=== PATIENT | male | born 2005 | race Caucasian/White ===

== ENCOUNTER 2024-10-02 01:06 | Inpatient (IN) | payer BC, SELFPAY ==
[2024-10-01 18:58] VITALS: BP 135/70
[2024-10-01 21:27] VITALS: BP 121/74
[2024-10-01 22:00] VITALS: BP 124/56
[2024-10-01 22:12] VITALS: BMI 23.7
--- NOTE | 2024-10-01 22:56 | ED.GENMED ---
History of Present Illness
General
Chief Complaint: DVT/Possible Blood Clot
Source: patient
Exam Limitations: none
Time Seen by Provider: 10/01/24 22:55
Nursing documentation reviewed up to this point in time: agreed with
History of Present Illness
History of Present Illness:
Note:
CHIEF COMPLAINT(S)
Swelling and discoloration of the right upper arm with discomfort.
HISTORY OF PRESENT ILLNESS
The patient is a 19-year-old male who presents with swelling and purplish discoloration of the right upper arm. The symptoms began yesterday morning. The patient noticed the swelling upon waking up, and it has fluctuated over the past two days. He
reports discomfort but not severe pain, describing it uncomfortable. There is full range of motion in the arm despite the swelling. The patient denies any acute worsening of symptoms in the past few hours. He does not recall any specific injury,
recent physical activity, or lifting that could explain the symptoms. The patient flew two weeks ago but lacks a history of prolonged immobility or recent vigorous activity denies any pain or swelling in his legs. He denies any neck pain, chest
pain, difficulty breathing, or numbness and tingling in the arm. He has no personal history of blood clots but reports a family history of autoimmune disorders.
The patient underwent an ultrasound, revealing a blood clot in the right subclavian vein extending into the axillary vein.
PHYSICAL EXAM
Nursing notes reviewed and vital signs reviewed.
General: Patient is well appearing and in no acute distress; non-toxic
Skin: Warm and dry, no rashes or lesions
Head: Normocephalic, atraumatic
Eyes: Sclera non-icteric. EOMs intact.
Cardiac: Regular rate and rhythm, no murmurs
Peripheral Vascular: Asymmetric swelling noted in the right arm. 2+ radial and ulnar pulses on the right.
Pulm: Normal respiratory effort, no wheezes, rales, rhonchi
Musculoskeletal: Full range of motion of bilateral upper extremities. No tenderness palpation of the right upper extremity.
Neuro: CN II-XII intact, no focal neurologic deficits.
Psychiatric: Appropriate mood and affect.
PLAN
The patient will be initiated on oral anticoagulation therapy to manage the blood clot in the right subclavian vein extending into the axillary vein.
Consultation with a tax director is planned to discuss the possibility of additional testing for clotting disorders and to evaluate any need for any parenteral anticoagulation
Provide the patient with a copy of the ultrasound report and schedule a follow-up with a tax director for further testing and monitoring.
Continue to monitor symptoms and ensure regular follow-up
DIFFERENTIAL DIAGNOSIS
The Differential Diagnosis includes, in no particular order and is not limited to:
1. Deep vein thrombosis of the upper extremity
2. Thoracic outlet syndrome
3. Brachial plexus injury
4. Lymphedema
5. Hematoma
6. Superficial thrombophlebitis
7. Cellulitis
8. Muscle strain
9. Vascular malformation
10. Autoimmune vasculitis
ECG
ECG reveals sinus bradycardia with sinus arrhythmia with a rate of 57, normal intervals, no prolongation of QT interval no signs of ischemia
CHART REVIEW
Reviewed [facility], no previous ER physician documentation to review
Patient is visiting from [place]
MDM/DISPOSITION
19-year-old male with no past medical history presents emergency department today with concerns of right arm pain and swelling. He is found to have occlusive thrombus within the right subclavian vein extending into the right axillary vein.
Reviewed case with tax director on-call. Plan to initiate IV heparin and refer for admission. Did talk to vascular as well. Patient may be a candidate for lysis. Will keep NPO. Patient referred to hospitalist for admission.
Review of Systems
Review of Systems
All Other Systems: ROS reviewed and negative except as documented in HPI and ROS
Phy Exam
Physical Exam
Physical Exam:
see hpi
Course
Orders/Labs/Results
Orders:
Orders
10/01/24 19:00
US Periph Venous UPPER Ext RT Urgent
Comment:
Reason For Exam: swollen R arm
07/13/25 19:09
EKG [Electrocardiogram (*1)] Urgent
Reason for Study: Other
Other Reason for Exam: palpitations
EKG- Treatment ONCE
10/02/24 00:[address] Non Medication Order As Directed
Physician Order: PTT 6 hours after initial start of Heparin infusion
Above order entered?: Yes
10/02/24 00:15
Heparin 06561 Units/250 ml 25,000 units in 250 ml IV PER PROTOCOL
Weight to be used for heparin protocol in kilograms (kg):: 77.111
Protocol:: DVT/PE
PTT Goal Range to be used:: PTT 73 to 111 seconds
Order type:: Initial
INITIAL Infusion Dose (UNITS/KG/hr) & then follow protocol:: 18 units/kg/hr
Infusion Dose in UNITS/hr & then follow protocol (UNITS/hr):: 1,400
INFUSION RATE in mL/hr & then follow protocol (mL/hr):: 14
For DVT/PE algorithm, re-bolus for low PTT?: Yes
PTT less than or equal to 64 seconds:: Re-bolus 80 units/kg (max 10,000units). Increase by 300 units/hr
(+ 3mL/hr)
PTT 64.1 to 72.9 seconds:: Re-bolus 40 units/kg (max 5,000 units). Increase by 200 units/hr
(+ 2mL/hr)
PTT 73 to 111 seconds:: Target Range. No change in rate.
PTT 111.1 to 130.9 seconds:: Decrease rate by 200 units/hr (- 2 mL/hr)
PTT 131 to 199.9 seconds:: HOLD for 1 hr. Then decrease by 200 units/hr (- 2mL/hr)
PTT greater than or equal to 200 seconds:: HOLD for 2 hrs & Notify Provider. Then decrease by 300 units/hr
(- 3mL/hr)
Lab follow-up:: Each change, PTT q6h until 2 consecutive are therapeutic. Then
PTT daily.
10/02/24 00:32
Complete Blood Count/With Diff Urgent
Comprehensive Metabolic Panel Urgent
PTT Urgent
Prothrombin Time Urgent
10/02/24 00:43
Heparin 6,200 units IV PRN PRN
10/02/24 00:44
Heparin 3,100 units IV PRN PRN
10/02/24 00:53
Heparin 6,200 units IV NOW STA
10/02/24 00:54
Admit/Transfer Patient As Directed
Co-Sign Provider:
Level of Care: Inpatient admission
Assign to:: Telemetry
Physician / Group: Aurelio
Diagnosis: RUE DVT
Reason for Telemetry: Arrhythmia
Date to Stop Telemetry: 10/05/24
Time to Stop Telemetry: 11:00
Reason for Hospitalization: RUE DVT
Expected length of stay greater than two midnights?: Yes
ELOS- Estimated Length of Stay in days: 3
I certify the patient meets the requirements for IP care: Yes
PRN Pain Medication Management As Directed
May give lesser potent ordered pain med per pt: Yes
preference::
Protocol:: Medication orders for pain may be administered in a
manner that supports deferring to patient preference
when the pt is:
- Requesting an ordered lesser potent pain medication.
Least to most potent pain medications are defined
as: acetaminophen < NSAID < tramadol < opioids
(morphine, oxycodone, hydromorphone).
- Requesting a lesser dose of the same medication IF
ORDERED.
- Requesting a less intrusive route of administration
if both routes are prescribed by the provider (PO <
IV).
10/02/24 00:55
Code Status As Directed
Resuscitation Status: Full Code
10/02/24 01:00
Flush (0.9% Sodium Chloride) [Flush (Nss)] See Dose Instructions IV PER PROTOCOL
10/02/24 01:50
Acetaminophen [Tylenol] 650 mg PO Q4HPRN PRN
10/02/24 01:50
Consult Notification Routine
Specialty to Notify: Vascular Surgery
Vascular Surgery Consult Routine
Consulting Provider: Chris Forman
Was physician already notified: No
Reason for consult: RUE DVT / Paget-Schroetter?
Glycohemoglobin (HgbA1c) Routine
TSH Reflex To Free T4 Routine
Heparin Protocol- PTT Orders As Directed
PTT per Heparin protocol: -Obtain CBC and baseline PTT - if not already collected.
-Obtain PTT 6 hours from start of infusion. Then, every 6 hours until 2 consecutive
PTT's are therapeutic. Then, PTT Daily.
-With each rate change, obtain PTT every 6 hours until 2 consecutive PTT's are
therapeutic. Then, PTT Daily.
Activity As Directed
Activity Level: Ambulate
EKG with chest pain [ECG as needed] As Directed
ECG as needed for:: Chest Pain
I/O [Intake/ Output] As Directed
Frequency: Per unit guidelines
Notify MD As Directed
Notify physician if: PTT is greater than or equal to 200.
Vital Signs As Directed
Frequency: Per unit guidelines
10/02/24 Breakfast
NPO
Allow oral meds: Yes
Allow clear liquids: Sips of Clears
10/04/24 06:00
Complete Blood Count/No Diff Q2D
Comment: notify provider: Platelet count < 130,000 or decrease by 50% from baseline
10/05/24 11:00
DC Protocol for Telemetry ONCE
10/06/24 06:00
Complete Blood Count/No Diff Q2D
Comment: notify provider: Platelet count < 130,000 or decrease by 50% from baseline
10/08/24 06:00
Complete Blood Count/No Diff Q2D
Comment: notify provider: Platelet count < 130,000 or decrease by 50% from baseline
10/10/24 06:00
Complete Blood Count/No Diff Q2D
Comment: notify provider: Platelet count < 130,000 or decrease by 50% from baseline
10/12/24 06:00
Complete Blood Count/No Diff Q2D
Comment: notify provider: Platelet count < 130,000 or decrease by 50% from baseline
10/14/24 06:00
Complete Blood Count/No Diff Q2D
Comment: notify provider: Platelet count < 130,000 or decrease by 50% from baseline
10/16/24 06:00
Complete Blood Count/No Diff Q2D
Comment: notify provider: Platelet count < 130,000 or decrease by 50% from baseline
10/18/24 06:00
Complete Blood Count/No Diff Q2D
Comment: notify provider: Platelet count < 130,000 or decrease by 50% from baseline
Abnormal Lab Results
10/02/24
00:32
RBC 4.59 L 10^6/uL
(4.70-6.10)
MCH 31.2 H pg
(27.0-31.0)
Absolute Monos (auto) 1.0 H 10^3/uL
(0.1-0.6)
Monocytes % 11.0 H %
(1.7-9.3)
PT 14.8 H Sec
(11.4-14.6)
Glucose 168 H mg/dl
(70-99)
10/02/24 00:32
10/02/24 00:32
Vital Signs
Initial and Last Documented VS:
Initial Vital Signs
Temp Pulse Resp BP Pulse Ox
98.2 F 68 16 135/70 100
10/01/24 18:58 10/01/24 18:58 10/01/24 18:58 10/01/24 18:58 10/01/24 18:58
Last Documented Vital Signs
Temp Pulse Resp BP Pulse Ox
98.2 F 55 18 119/82 100
10/02/24 02:15 10/02/24 02:15 10/02/24 02:15 10/02/24 02:15 10/02/24 02:15
*Pulse Oximetry
SaO2: 98
Oxygen Mode of Delivery: Room air
Patient hypoxic: no
*Critical Care Note
Total Time (30-74mins, 75-104mins- exclusive of procedures): Not Applicable
ED Attending Note
-
Portions of this chart may have been created with voice recognition software.� Occasional wrong word or��sound alike� substitutions may have occurred due to the inherent limitations of voice recognition software.
Discharge Plan
Departure
Patient Disposition: Admit
Date of Disposition: 10/02/24
Time of Disposition: 00:13
Admit to: Med/Surg
Presentation/result/management discussed w/ accepting MD/DO: Hospitalist
Patient with high blood pressure during this ER visit?: Yes
Condition: Fair
Discharge Problem:
Acute deep vein thrombosis (DVT) of right upper extremity
Interventions
Interventions:
*Risk Screen - Suicide Last Done: 10/02/24 02:06
*General Assessment Last Done: 10/01/24 22:13
*Neglect/Abuse Screening Last Done: 10/01/24 20:33
*ED- Fall Risk Assessment Last Done: 10/01/24 20:34
*ED COVID-19 Vaccine History Last Done: 10/01/24 20:34
*Nursing Disposition Last Done: 10/02/24 01:43
ED- Cardiac Assessment Last Done: 10/01/24 22:13
ED- Pulmonary Assessment Last Done: 10/01/24 22:13
ED-Peripheral Vascular Assessment Last Done: 10/01/24 22:13
ED-Skin Assessment Last Done: 10/01/24 22:13
Discharge Date and Time
Discharge Date/Time: 10/02/24 01:45
[2024-10-02] VITALS (26 sets, daily range): BP systolic 97–124; BP diastolic 48–82; BMI 23.1
[2024-10-02 00:41] LABS: Hematocrit 39.7 % (39.0-52.0); Hemoglobin 14.3 g/dL (13.0-18.0); Mean Corp Hgb Conc. 36.0 g/dL (33.0-37.0); Mean Corpuscular Volume 86.5 fL (80.0-94.0); Nucleated Red Blood Cells % 0 % (-); Platelet Count 166 10^3/uL (130-400); Red Cell Dist. Width 11.9 % (11.5-14.5)
[2024-10-02 00:51] LABS: ALT (SGPT) 25 U/L (0-50); AST (SGOT) 47 U/L (17-59); Albumin 4.3 g/dl (3.5-5.0); Alkaline Phosphatase 78 U/L (38-126); Blood Urea Nitrogen 15 mg/dl (9-20); Calcium 9.2 mg/dl (8.4-10.2); Carbon Dioxide 26 mmol/L (22-30); Chloride 107 mmol/L (98-107); Estimated Creatinine Clearance > 125 ml/min; Glucose 168 mg/dl (70-99); Potassium 3.6 mmol/L (3.5-5.1); Sodium 139 mmol/L (135-145); Total Protein 6.7 g/dl (6.3-8.2); eGFR > 60.00
[2024-10-02 00:53] LABS: INR 1.13; PT 14.8 Sec (11.4-14.6)
[2024-10-02 00:54] LABS: APTT 30.8 Sec (23.4-35.0)
--- NOTE | 2024-10-02 01:00 | HPS.HSE ---
Family Physician
-
Family Physician: NOT KNOW UNKNOWN - PT DOES
Chief Complaint
-
RUE swelling
History of Present Illness
Patient is a 19y M with PMH significant for psoriasis who presents to ED complaining of RUE swelling, tingling and discoloration. Patient states that he noted his arm felt like it had 'poor circulation' since yesterday AM. His symptoms seemed
to come and go throughout the day - but generally became more frequent / severe. He noted mild redness and occasional purple appearance to the RUE. He reports increased discomfort if he raises his arm over his head. He denies any prior history of
similar symptoms.
Patient states that he recently started a running / jogging regimen. He denies any other repetitive movements, weight lifting, etc.
Medical History
Past Medical History
Past Medical History: Reports Other
Additional Past Medical History:
Psoriasis
Past Surgical History: Reports Other
Additional Past Surgical History:
Cyst removal
T&A
Social History
Tobacco: Non-smoker
Alcohol: Occasional
Drug: None
Family History
Family History: Other (Mother: DM-I MGF: Grave's disease MGM: Myasthenia MUncle: Crohn's PGM: Multiple miscarriages)
Allergies / Home Medications
Allergies reflects when Allergies were last updated in [employer].
Home Medications with original date entered in [employer]
Allergy/Medication List:
Allergies
Allergy/AdvReac Type Severity Reaction Status Date / Time
No Known Allergies Allergy Unverified 10/01/24 19:03
Home Medications
No Meds [No Current Medications] 10/02/24
Review of Systems
-
History Source: Patient
A 12 point ROS was completed and negative except as noted: Yes
Constitutional: Denies Fever or Chills
Respiratory: Denies Cough or Trouble Breathing
Cardiac: Denies Chest Pain or Palpitations
Abdomen/GI: Denies Abdominal Pain, Nausea, Vomiting or Diarrhea
: Denies Dysuria or Frequency
Musculoskeletal: Reports Edema (RUE)
Skin: Reports Other (Discoloration of RUE)
Neurological: Denies Dizzy or Headache
Physical Exam
Vital Signs
Vital Signs
Temp Pulse Resp BP Pulse Ox
98.2 F 78 16 124/56 98
10/01/24 18:58 10/01/24 21:27 10/01/24 18:58 10/01/24 22:00 10/01/24 23:00
Physical Exam
General: Other (19y M in no acute distress.)
HEENT: Moist mucous membranes and PERRLA
Respiratory: Clear; No Wheezes, Rales or Rhonchi
Cardiac: S1/S2 and Regular Rhythm; No Murmur
GI: Soft, Non Tender, Non Distended and Normal Bowel Sounds
Musculoskeletal: Other (RUE with asymmetric edema compared to the L. Mild erythema / discoloration. )
Neuro: AO x 3
Hematologic/Lymphatic: Other (Palpable pulses at the R wrist. Good cap refill.)
Laboratory Results
-
10/02/24 00:32
10/02/24 00:32
Laboratory Results
PT 14.8 Sec (11.4-14.6) H 10/02/24 00:32
INR 1.13 10/02/24 00:32
APTT 30.8 Sec (23.4-35.0) 10/02/24 00:32
Total Bilirubin 0.6 mg/dl (0.2-1.3) 10/02/24 00:32
AST 47 U/L (17-59) 10/02/24 00:32
ALT 25 U/L (0-50) 10/02/24 00:32
Alkaline Phosphatase 78 U/L (38-126) 10/02/24 00:32
Impression/Plan
-
A/P: Patient is a 19y M with PMH significant for psoriasis who presents to ED c/o 2 days of RUE swelling.
RUE DVT
- Admit for further evaluation and treatment.
- Suspect venous thoracic outlet obstruction / Paget-Schroetter's syndrome given age and absence of other apparent risk factors.
- IV heparin overnight.
- Vascular Surgery evaluation in the AM.
- May benefit from thoracic outlet decompression / first rib resection.
- Defer discussions re: timing / intervention to Vascular Surgery.
- Change to OAC prior to discharge.
- Patient / family are from [place] and just here visiting. May wish to seek definitive care / surgery / etc back home if possible.
Code Status: Full
[2024-10-02] MEDS: HEPARIN 6200 UNITS IV (01:21)
[2024-10-02] MEDS: HEPARIN 25000 UNITS/250 ML IV (01:24)
--- NOTE | 2024-10-02 02:52 | PTCARENOTE ---
Patient arrived from the ED via stretcher at approximately 0150. Patient ambulated self from stretcher to bed - gait steady. AAOx3, pleasant. Patient w/ heparin gtt running through LAC @ 14mls/hr - next PTT due at 0730. VSS as documented. Assessment
as documented. Patient oriented to room. Bed in lowest position. Call fierro within reach.
--- NOTE | 2024-10-02 07:18 | CON.VAS ---
Addendum entered and electronically signed by Abdiel Wheeler III, MD 10/02/24 15:30:
This patient was seen and examined in collaboration with VERNON Barron. I agree with the history and physical exam as well as the assessment and plan. I have the following additions:
Healthy 19-year-old male with no past medical or past surgical history
Presents with right arm discoloration and swelling starting Wednesday morning acutely
He reports no preceding symptoms
Patient reports no precipitating activity
Has been exercising recently but denies strenuous weightlifting or exercises above his head
No repetitive motion exercises
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
He is a student at [employer]
He lives in [place]
Venous duplex personally reviewed and demonstrates occlusive thrombus in the right subclavian vein
On physical exam he is well-appearing and in no distress
Mom at bedside
He is alert and oriented
No chest wall collaterals identified
Right arm is firm compared to the left but not tight
Mild to moderate purple discoloration throughout
Nontender to palpation
Palpable radial pulse
Assessment/Plan: Venous TOS with occlusive R SCV DVT
I had a long conversation with the patient and his mother this morning regarding the diagnosis and recommended treatment strategies. I had a separate detailed conversation this afternoon with the patient and his mother once again along with his
father via telephone. During both discussions I explained the diagnosis of venous thoracic outlet syndrome and the subclavian vein DVT. I explained that the initial treatment strategy would be to reestablish patency of the subclavian vein with
thrombolysis. The technical aspects of this procedure were discussed with them in detail. The benefits and rationale for this approach were discussed with them in detail. Operative risks were discussed with them in detail including but not
limited to vascular access site injury, bleeding/hematoma, low risk of catastrophic or life-threatening bleeding. I also explained that the definitive intervention for venous thoracic outlet syndrome would be first rib resection and scalenectomy.
The technical aspects of this procedure were discussed with them in detail. The benefits and rationale for first rib resection were discussed with them in detail. Anticipated recovery, both inpatient and outpatient were discussed with them.
The other option which we discussed would be to have him go home on anticoagulation without thrombolysis and followup urgently with a vascular surgeon close to home to initiate lysis/surgical management. The advantages and disadvantages of this
approach were discussed with them.
They are not sure how they would like to proceed at this point. I explained that I have personally communicated with Dr. Matt Jaquez from [facility] who is willing to facilitate followup with Kyrie once he gets back home.
They would like some additional time to figure out how they want to proceed.
We will alutiiq back with them later this PM to finalize a plan
All questions answered
Signed:
Abdiel Wheeler III, MD
Vascular Surgery
[facility]
Original Note:
Consultation
Consultation Request
Date/Time Consultation Performed: 10/02/24 8:00
Performing Provider: Summer
Reason for Consultation: RUE DVT
Medical History
-
Chief Complaint: RUE swelling/discomfort
History of Present Illness:
19-year-old male with past medical history significant for psoriasis presented to the emergency room overnight for right upper extremity swelling/discoloration/discomfort. Patient states he woke Wednesday morning with stiffness to his right upper
extremity. Stated 'I did not have full range of motion'. Patient states that throughout the day his arm would intermittently feel swollen and become purple in color. He states he had increased discomfort when he raise his arm over his head. He
decided to come to the emergency room last night and was admitted for management of right upper extremity DVT.
Vascular consult for right upper extremity DVT. Patient seen at bedside this a.m. with Dr. Wheeler. Patient's mother at bedside as well. Right upper extremity slightly larger than left, no discoloration, hand warm and pink, mild discomfort per the
patient. Patient denies repetitive movements. States he has very active. He does long distance running and body weight workouts. Patient was placed on heparin drip last night. Patient/family are from [place] and were here visiting for the
weekend.
Past Medical History
Past Medical History: Other (Psoriasis)
Past Surgical History: Other (Cyst removal, T&A)
Social History
Tobacco: Non-Smoker
Alcohol: Occasional
Drug: None
Living: With Family
Family History
Family History: Other (DM-I, Grave's disease, Myasthenia , Crohn's, Multiple miscarriages)
Allergies / Home Medications
Allergy/AdvReac Type Severity Reaction Status Date / Time
No Known Allergies Allergy Unverified 10/01/24 19:03
�Medication �Instructions �Recorded �Confirmed �Type
No Meds [No Current Medications] 10/02/24 10/02/24 History
Review of Systems
-
History Source: Patient
All other systems: Negative unless noted
Constitutional: Reports No Symptoms
EENT: Reports No Symptoms
Respiratory: Reports No Symptoms
Cardiac: Reports No Symptoms
Vascular: Reports Tingling (Right upper extremity intermittently); Denies Leg Pain / Claudication
Abdomen/GI: Reports No Symptoms
: Reports No Symptoms
Musculoskeletal: Reports Muscle Stiffness and Edema
Skin: Reports No Symptoms
Neurological: Reports No Symptoms
Physical Exam
Vital Signs
Temp Pulse Resp BP Pulse Ox
98.2 F 55 18 119/82 100
10/02/24 02:15 10/02/24 02:15 10/02/24 02:15 10/02/24 02:15 10/02/24 02:15
Lab Results
10/02/24 00:32
10/02/24 00:32
Physical Exam
General: No Apparent Distress
HEENT: Normocephalic and Atraumatic
Respiratory: Non Labored Respirations
Cardiac: Negative JVD
GI: Soft and Non Tender
Musculoskeletal: No Clubbing, No Cyanosis and Edema (Scant swelling to the right upper extremity)
Skin: Warm
Neuro: Awake, Alert and Oriented
Psych: Calm
Assessment / Plan
-
19-year-old male here with right upper extremity DVT, suspected thoracic outlet syndrome
Plan:
N.p.o. for possible right upper extremity lysis later today
Continue heparin drip
Dr. Wheeler is in communication with vascular surgeons in [place] near patient's hometown. Formulating plan for lysis/first rib resection/follow-up with vascular surgeon near patient's home. We will follow-up with the patient with surgical plan
shortly.
Data Reviewed
-
CT Scan: Discussed with Patient
Ultrasound: Discussed with Patient
Labs: Labs Reviewed by me
[2024-10-02 07:55] LABS: APTT 105.6 Sec (23.4-35.0)
--- NOTE | 2024-10-02 08:44 | W.PN.UPDATE ---
Update Note
Progress Note Update
Patient seen and examined, agree with admission H&P.
19-year-old male admitted for right upper extremity DVT and possible venous thoracic outlet syndrome.
Discussed with vascular surgery, continue IV heparin, plan for thrombolysis this afternoon.
Patient will need to be monitored in the ICU afterwards.
[2024-10-02 08:53] LABS: Glycohemoglobin (HgbA1c) 4.7 % (4.0-5.6)
--- NOTE | 2024-10-02 11:21 | CM ---
Reviewed the chart notes and spoke with the patient and his mother at the bedside. Patient typically during school year resides with roommates in a three story townhome with six steps to enter at school. The patient reports no DME/VN/SNF in the
past. The patient's family was visiting from [place] and staying with friends in [facility]. The patient anticipates being stabilized here and discharging back to [place] for further treatment. CM continues to be available to patient/family and is
monitoring medical plan for needs at discharge.
Plan: Discharge to parents home in [place] when medically stable.
[2024-10-02 14:12] LABS: APTT 64.8 Sec (23.4-35.0)
[2024-10-02] MEDS: HEPARIN 3100 UNITS IV (14:44)
[2024-10-02] MEDS: BACTROBAN 2% OINTMENT 1 APPLIC NASAL (16:18)
[2024-10-02] MEDS: PERIDEX 0.12% ORAL RINSE 15 ML PO (16:18)
--- NOTE | 2024-10-02 16:39 | W.SUR.PREOP ---
Pre-Operative Surgical Note
-
Patient and family have decided to move ahead with initiation of thrombolysis.
I have examined this patient prior to the performance of the scheduled procedure.
The patient's condition is unchanged from the time of the current History and
Physical and the patient is able to undergo the scheduled procedure.
--- NOTE | 2024-10-02 18:19 | W.SUR.POST ---
Surgical Immediate Post Op
Note
Pre Op Diagnosis: Thoracic Outlet Syndrome
Post Op Diagnosis: Thoracic Outlet Syndrome
Procedure Performed: RUE subclavian lysis catheter placement
Primary Surgeon: Abdiel Wheeler III, MD
Secondary Surgeons: Elgin Rehman MD
Anesthesia: see anesthesia note
Estimated Blood Loss: 1cc
Fluids: see anesthesia note
Drains/Shunts: lysis catheter
Specimens/Cultures: none
Doppler/Duplex/Angio (Y/N): Y
Complications: none
Operative Findings: Extensive R subclavian clot burden with stenosis at level of first rib medial border.
[2024-10-02] MEDS: CATHFLO/ACTIVASE 16 ML INF CATH (18:28)
[2024-10-02] MEDS: CATHFLO/ACTIVASE 16 MG INF CATH (18:28)
[2024-10-02] MEDS: HEPARIN 25000 UNITS/250 ML VEN SHEATH (18:30)
[2024-10-02] MEDS: NSS 1000 INF CATH (18:32)
--- NOTE | 2024-10-02 18:40 | PTCARENOTE ---
Pt arrived from cathlab/or via bed. He is awake and alert with c/o 1 out of 10 right upper extremity discomfort when asked. He was instructed to report and numbness, tingling, worsening pain or discomfort or bleeding. He verbalized his
understanding. Left FA#22g protective catheter with 0.9nss. Right upper extremity warm, able to wiggle his finger. Reports intermittent sharp pain. [place] wrap to his right upper extremity. Bounding radial and ulnar pulses on his right arm. Venous
sheath 0.9nss 46ml/hr with Alteplase 1mg/hr piggybacked into 'B' port. Heparin non-titratable via right venous sheath pigtail port @ 500units/hr. Reviewed the plan of care, use of the call fierro. Safe environment maintained. His mother Kayla Galeano
was notified to come up to room 3361.
--- NOTE | 2024-10-02 19:15 | PTCARENOTE ---
Rec'd pt from previous RN, hand off done, pt awake, alert, oriented, cooperative,R arm w/ monica wrap, good sensation of fingers, fingers warm, pulses palpable, TPA at 1mg/hr via catheteralong w/ nss at 46ml/hr; non titratable hep gtt at 500 units/hr
via venous R arm, pulse ox on R finger, pt aware to call if anyheadache, tenseness, bleeding, mother at bedside & updated; tylenol 650mg po given for pain; Sinus toya, BP stable, RA, lungs clear, sat 100, + bowel sounds, abd soft/nontender, no
n/v, snow clear liquids, HNV yet this shift
[2024-10-02] MEDS: TYLENOL 650 MG PO (19:26)
[2024-10-02] MEDS: NSS 1000 IV (19:27)
[2024-10-02 19:51] LABS: Hematocrit 38.4 % (39.0-52.0); Hemoglobin 14.2 g/dL (13.0-18.0); Mean Corp Hgb Conc. 37.0 g/dL (33.0-37.0); Mean Corpuscular Volume 85.1 fL (80.0-94.0); Platelet Count 166 10^3/uL (130-400); Red Cell Dist. Width 11.8 % (11.5-14.5)
--- NOTE | 2024-10-02 20:00 | PTCARENOTE ---
dilaudid 0.5mg iv given for pain
[2024-10-02] MEDS: DILAUDID 0.5 MG IV (20:04)
[2024-10-02 20:25] LABS: INR 1.17
[2024-10-02 20:26] LABS: APTT 64.9 Sec (23.4-35.0); Fibrinogen 274 MG/DL (199-459); PT 15.2 Sec (11.4-14.6)
[2024-10-02 20:27] LABS: APTT 55.2 Sec (23.4-35.0)
[2024-10-02] MEDS: ROXICODONE 5 MG PO (21:18)
--- NOTE | 2024-10-02 21:19 | PTCARENOTE ---
oxycodone 5mg po given for pain
[2024-10-02 21:37] LABS: ALT (SGPT) 24 U/L (0-50); AST (SGOT) 44 U/L (17-59); Albumin 4.2 g/dl (3.5-5.0); Alkaline Phosphatase 61 U/L (38-126); Blood Urea Nitrogen 10 mg/dl (9-20); Calcium 9.2 mg/dl (8.4-10.2); Carbon Dioxide 28 mmol/L (22-30); Chloride 107 mmol/L (98-107); Estimated Creatinine Clearance > 125 ml/min; Glucose 83 mg/dl (70-99); Potassium 4.3 mmol/L (3.5-5.1); Sodium 139 mmol/L (135-145); Total Protein 6.6 g/dl (6.3-8.2); eGFR > 60.00
[2024-10-02 22:10] LABS: Magnesium 2.1 mg/dl (1.6-2.3)
--- NOTE | 2024-10-02 23:00 | PTCARENOTE ---
Pt c/o severe pain at base of thumb, vasc checks intact;when monica was lifted pain decreased, Texted Dr Wheeler, awaiting response; Ivette Stone NP in to see pt and loosened monica wrap, pain decreased and pt felt much better
[2024-10-02 23:21] LABS: Hematocrit 37.0 % (39.0-52.0); Hemoglobin 13.8 g/dL (13.0-18.0); Mean Corp Hgb Conc. 37.3 g/dL (33.0-37.0); Mean Corpuscular Volume 84.1 fL (80.0-94.0); Platelet Count 156 10^3/uL (130-400); Red Cell Dist. Width 11.8 % (11.5-14.5)
[2024-10-03] VITALS (27 sets, daily range): BP systolic 100–128; BP diastolic 37–75; BMI 23.1
--- NOTE | 2024-10-03 | PTCARENOTE ---
sys reviewed, pulses unch,oxy 10mg po given for R mid arm pain, pain at thumb much improved, bladder scanned for 577 ml, unable to void, str cathed for 500ml yellow urine; npo for procedure in am
[2024-10-03] MEDS: CATHFLO/ACTIVASE 16 MG INF CATH ×4 (00:04→11:45)
[2024-10-03] MEDS: CATHFLO/ACTIVASE 16 ML INF CATH ×4 (00:04→11:45)
[2024-10-03 00:07] LABS: APTT 34.5 Sec (23.4-35.0); INR 1.13; PT 14.8 Sec (11.4-14.6)
[2024-10-03 00:08] LABS: Fibrinogen 264 MG/DL (199-459)
[2024-10-03] MEDS: ROXICODONE 10 MG PO ×2 (00:09→03:45)
--- NOTE | 2024-10-03 04:00 | PTCARENOTE ---
Sys reviewed, oxy 10mg po given for painR mid arm, neuro vasc intact
[2024-10-03 04:07] LABS: Hematocrit 37.5 % (39.0-52.0); Hemoglobin 13.8 g/dL (13.0-18.0); Mean Corp Hgb Conc. 36.8 g/dL (33.0-37.0); Mean Corpuscular Volume 85.6 fL (80.0-94.0); Platelet Count 145 10^3/uL (130-400); Red Cell Dist. Width 11.9 % (11.5-14.5)
[2024-10-03 04:12] LABS: INR 1.17; PT 15.2 Sec (11.4-14.6)
[2024-10-03 04:13] LABS: APTT 35.0 Sec (23.4-35.0); Fibrinogen 256 MG/DL (199-459)
[2024-10-03 04:26] LABS: Blood Urea Nitrogen 11 mg/dl (9-20); Calcium 9.3 mg/dl (8.4-10.2); Carbon Dioxide 27 mmol/L (22-30); Chloride 108 mmol/L (98-107); Estimated Creatinine Clearance > 125 ml/min; Glucose 81 mg/dl (70-99); Potassium 4.3 mmol/L (3.5-5.1); Sodium 139 mmol/L (135-145); eGFR > 60.00
--- NOTE | 2024-10-03 06:57 | CON.INTV ---
Consultation
Consultation Request
Date/Time Consultation Requested: 10/02/2024
Date/Time Consultation Performed: 10/03/2024
Medical History
-
Chief Complaint: Arm swelling
History of Present Illness:
Patient is a 19-year-old male with history of psoriasis who presented to emergency room with right upper extremity swelling, discoloration going on for about a day. Additional workup in the emergency room included a venous Doppler which was
suggestive of right subclavian DVT. Subsequently vascular surgery was consulted and patient was taken to the OR for catheter directed thrombolysis. Postprocedure, patient was admitted to the ICU and medical billing associate consultation was requested for
further input.
Past Medical History
Past Medical History: Reports Other
Additional Past Medical History:
Psoriasis
Past Surgical History: Reports Other
Additional Past Surgical History:
Cyst removal
T&A
Social History
Tobacco: Non-smoker
Alcohol: Occasional
Drug: None
Family History
Family History: Other (Mother: DM-I MGF: Grave's disease MGM: Myasthenia MUncle: Crohn's PGM: Multiple miscarriages)
Allergies / Home Medications
Allergies
Allergy/AdvReac Type Severity Reaction Status Date / Time
No Known Allergies Allergy Unverified 10/01/24 19:03
Home Medications
�Medication �Instructions �Recorded �Confirmed �Last Taken �Type
No Meds [No Current Medications] 10/02/24 10/02/24 Unknown History
Review of Systems
-
Hematologic/Lymphatic: Other (All 14 systems reviewed and negative except as stated above in the history of present illness.)
Vitals / Labs / Diagnostic Testing
Vital Signs
Temp Pulse Resp BP Pulse Ox
97.4 F 38 10 101/54 97
10/03/24 03:07 10/03/24 06:00 10/03/24 06:00 10/03/24 06:00 10/03/24 06:00
Lab Data
10/03/24 03:51
Laboratory Results
10/02/24 10/02/24 10/02/24
07:27 13:33 19:36
PT 15.2 H
INR 1.17
APTT 105.6 H 64.8 H 55.2 H
10/02/24 10/02/24 10/03/24
19:36 23:05 03:51
PT 14.8 H 15.2 H
INR 1.13 1.17
APTT 64.9 H 34.5 35.0
Diagnostic Testing:
Physical Exam
-
HEENT: Normocephalic
Cardiovascular: S1/S2
Respiratory: Clear
GI: Soft and Non Distended
Neurology: Awake and Alert
Skin: Warm, Dry and Other (Right hand does not show any evidence of livedo reticularis or cyanosis. Rest of the arm in Kingston wrap)
General: Comfortable
Assessment
-
Patient is a 19-year-old male who presented with right subclavian thrombosis, noted to have thoracic outlet syndrome, s/p right upper extremity subclavian lysis catheter placement by vascular surgery service, POD #1
Operative findings: Extensive right subclavian clot burden with stenosis at level of first rib medial border
Continue observation following procedure
Follow neurovascular checks per protocol
Currently on heparin infusion as well as alteplase
Follow BP monitoring and parameters as set by primary team
No prior cardiac history
Monitor on telemetry
Pain control per protocol
RASS goal 0
No prior history of pulmonary disease
CXR reviewed indicating no acute disease
Diet advancement per protocol
Aspiration precautions
GI prophylaxis: Not indicated
Creat at baseline, follow UO
Critical I/Os
Replete electrolytes as needed
No signs/symptoms suspicious for infectious etiology at this time
Will observe off antibiotics for now
Follow temperatures/CBC
Hb and platelets postoperatively stable
#1. Acute Right Subclavian DVT, likely related to mechanical reason. Out patient follow up with Hematology service for further evaluation and duration of anticoagulation recommendations.
#2. Right Thoracic outlet syndrome with stenosis at medial first rib, eventually will need surgery for definitive treatment.
Discussed with patient's mother at bedside
Critical Care time [51] mins -- The patient is admitted for acute critical illness for the treatment of vital organ failure and/or prevention of further life-threatening conditions. Total care includes time spent in review of history, physical exam,
medications, hemodynamic/ventilator parameters, laboratory data, imaging and discussion with house staff, pharmacy, respiratory therapy, company marker, and nursing.
Data:
Vascular US 09/2024: Occlusive thrombus within the right subclavian vein which likely extends into the proximal axillary vein
CXR 09/2024: Right upper extremity catheter with tip projecting over the region of the confluence of the brachiocephalic veins.
[2024-10-03] MEDS: NSS INF CATH (07:07)
[2024-10-03] MEDS: NSS 1000 IV ×2 (07:09→18:17)
[2024-10-03] MEDS: TYLENOL 650 MG PO ×3 (08:10→23:55)
--- NOTE | 2024-10-03 08:30 | OR.RPT ---
Operative Report
Operative Report
Date of Operation: 10/02/2024
Pre Op Diagnosis:
1. Occlusive Right Subclavian Vein DVT
2. Venous Thoracic Outlet Syndrome
Post Op Diagnosis:
1. Occlusive Right Subclavian Vein DVT
2. Venous Thoracic Outlet Syndrome
Procedure:
1. Right upper extremity venogram
2. Central venogram
3. Placement of thrombolysis catheter and initiation of pharmacologic venous thrombolysis (5 Fr, 30 cm Cragg Gutierrez)
4. Ultrasound-guided percutaneous access to the right basilic vein
Surgeon: Abdiel Wheeler III, MD
Cnc Milling Machinist: Elgin Rehman MD PGY-6
Anesthesia: Sedation/local
Complications: None
Estimated Blood Loss: Less than 20 cc
History and Indications for Procedure: 19-year-old male who presented with right upper extremity swelling and venous duplex demonstrating occlusive right subclavian vein DVT. Suspected diagnosis of venous thoracic outlet syndrome. He was taken to
the operating room for initiation of venous thrombolysis.
Procedure in Detail: Kyrie Galeano was correctly identified and placed supine on the operating table with his right arm abducted on an armboard. After adequate induction of anesthesia his right upper extremity was prepped and draped in the usual
sterile fashion. A timeout procedure was performed with the nursing and anesthesia staff confirming the patient's identity as well as the nature and laterality of the procedure.
Using ultrasound guidance we identified the right basilic vein just proximal to the elbow. Local anesthesia was infiltrated into the skin and subcutaneous tissue over the proposed puncture site. Using ultrasound guidance we accessed the basilic
vein with a micropuncture needle and then upsized to a 6 B[place]udian sheath over a Digital Lumensson wire. Venogram was performed through the sheath which demonstrated occlusive thrombus in the axillary and subclavian veins. Venous collaterals were identified
around the area of occlusion.
Using a Glidewire and glide catheter we were able to successfully navigate through the venous occlusion. There was difficulty advancing the wire and catheter across the margin of the first rib consistent with the diagnosis of thoracic outlet
syndrome. We were able to navigate the wire and catheter central to the occlusion. A central venogram was performed demonstrating a patent brachiocephalic vein and superior vena cava with no filling defects or stenosis. Additional venography was
performed to identify the extent of the subclavian thrombosis. A subclavian vein stenosis was identified over the first rib.
Next I brought into position a 5 B[place]udian 30 cm Cragg Gutierrez lysis catheter. This was positioned in the desired location. 8 mg of tPA was administered through the Cragg Gutierrez catheter as a bolus. After several minutes additional venography was
performed through the lysis catheter which demonstrated proper positioning across the venous thrombosis. The catheter was secured in place at the sheath exit site. The sheath was secured in place at the skin exit site with a nylon suture. tPA was
connected to the Cragg Gutierrez catheter and a drip was initiated at 1 mg an hour. Heparin drip was initiated through the sideport of the 6 Bermudian sheath at 500 units an hour. Adhesive dressings were applied to the sheath and lysis catheter. The
right arm was wrapped in an [place] wrap from the hand to the shoulder.
Patient tolerated the procedure well and was taken to the recovery room in stable condition.
Attestation: I was present and responsible for the entire procedure
Signed:
Abdiel Wheeler III, MD
Vascular Surgery
[facility]
--- NOTE | 2024-10-03 08:49 | W.PN.VS ---
Documented by User: Fransisca Fritz MD, Resident 10/03/24 09:00
Today's Communication / Plan
-
Plan:
-Continue heparin
-Continue as needed pain management
-Patient may get OOB to urinate, advise caution to avoid falls
-Plan for ORIF this afternoon to eval post thrombolysis and plan to remove catheter
Assessment/Plan
-
Patient is a 19-year-old male with no significant past medical history who presented with acute DVT of right upper extremity concerning for thoracic outlet syndrome now POD 1 status post thrombolysis.
Assessment: Patient recovering well postop, no concerns. Continuing on heparin drip. AVSS. Hemoglobin wnl, platelets wnl, PT 15.2, INR 1.17, APTT 35. Plan to take to the OR this afternoon to evaluate thrombus breakdown and likely remove catheter.
Plan:
-Continue heparin
-Continue as needed pain management
-Patient may get OOB to urinate, advise caution to avoid falls
-Plan for ORIF this afternoon to eval post thrombolysis and plan to remove catheter
-
Total Time Spent with Patient (in minutes): 10
Subjective Data
-
Date of Service: October 03, 2024
Patient doing well this morning, sleepy. Reports some pain in distal lower RUE overnight due to tight bandage. Straight cath overnight, wondering if okay to get OOB to urinate.
Objective Data
-
Vital Signs
Temp Pulse Resp BP Pulse Ox
97.8 F 38 10 101/54 97
10/03/24 08:00 10/03/24 06:00 10/03/24 06:00 10/03/24 06:00 10/03/24 06:00
Intake and Output
10/02/24 10/03/24 10/04/24
06:59 06:59 06:59
Intake Total 2039 / 204
Output Total 500 / 500
Balance 1540 / 1540
Intake:
Oral fluids 500 / 500
IV fluids (Total) 1540 / 1540
Alteplase 48 / 48
HEPARIN 69905 UNITS/250 ML 25, 60 / 60
000 units In 250 ml @ 500 UNITS
/HR 5 mls/hr DION SHEATH .Q24H
KATERYNA Rx#:[id number]
Nss 1,000 ml @ 46 mls/hr INF 552 / 552
CATH .[id number] KATERYNA Rx#:[id number]
Nss 1,000 ml @ 80 mls/hr IV . 880 / 880
[id number] KATERYNA Rx#:[id number]
Output:
Straight cath output 500 / 500
Lab Results
10/03/24 03:51
Calcium 9.3 mg/dl (8.4-10.2) 10/03/24 03:51
Phosphorus 4.8 mg/dl (2.5-4.5) H 10/02/24 19:36
Magnesium 2.1 mg/dl (1.6-2.3) 10/02/24 19:36
Total Bilirubin 1.0 mg/dl (0.2-1.3) 10/02/24 19:36
AST 44 U/L (17-59) 10/02/24 19:36
ALT 24 U/L (0-50) 10/02/24 19:36
Alkaline Phosphatase 61 U/L (38-126) 10/02/24 19:36
Total Protein 6.6 g/dl (6.3-8.2) 10/02/24 19:36
Albumin 4.2 g/dl (3.5-5.0) 10/02/24 19:36
Physical Exam
-
General: Well-appearing, well-developed, lying in bed
Cardio pulm: Nonlabored breathing
MSK/vascular: RUE wrapped in Kingston bandaging; bandages removed at bedside; RUE without discoloration, without swelling, without tenderness to palpation; incision site bandaged, without significant drainage or erythema, clean

Documented by User: Abdiel Wheeler III, MD 10/03/24 13:25
Today's Communication / Plan
-
Plan:
-Continue heparin
-Continue as needed pain management
-Patient may get OOB to urinate, advise caution to avoid falls
-Plan for ORIF this afternoon to eval post thrombolysis and plan to remove catheter
ATTENDING ADDENDUM:
This patient was seen and examined in collaboration with Dr. Fritz. I agree with the history and physical exam as well as the assessment and plan. I have the following additions:
Well this morning
Mom at bedside
No complaints except some discomfort from the Kingston wrap (we removed)
Access site is soft and without hematoma
Arm is soft
Plan for venography/lysis check later today
Continue tPA
Signed:
Abdiel Wheeler III, MD
Vascular Surgery
[facility]
[2024-10-03] MEDS: ROXICODONE 5 MG PO (09:13)
[2024-10-03 12:19] LABS: Hematocrit 39.5 % (39.0-52.0); Hemoglobin 14.3 g/dL (13.0-18.0); Mean Corp Hgb Conc. 36.2 g/dL (33.0-37.0); Mean Corpuscular Volume 86.1 fL (80.0-94.0); Platelet Count 152 10^3/uL (130-400); Red Cell Dist. Width 11.9 % (11.5-14.5)
--- NOTE | 2024-10-03 12:19 | PTCARENOTE ---
Pt continues with lysis catheter. Pulses improved t/o shift. Assisted to stand at bedside twice to void. Tolerated well. Medicated for pain as charted.
[2024-10-03 12:34] LABS: INR 1.14; PT 14.9 Sec (11.4-14.6)
[2024-10-03 12:36] LABS: APTT 34.8 Sec (23.4-35.0); Fibrinogen 267 MG/DL (199-459)
--- NOTE | 2024-10-03 12:48 | W.PN.HOSP.TC ---
Today's Communication/Plan
-
return to OR for lysis check/venogram
Assessment / Plan
Assessment / Plan
Assessment:
acute right subclavian DVT, underlying thoracic outlet syndrome from medial first rib
- s/p right upper extremity subclavian lysis catheter placement 10/02. operative findings include Extensive right subclavian clot burden with stenosis at level of first rib medial border
- continue IV heparin
- continue catheter directed lysis
- Neuro-vascular checks and ICU care
- for return to OR today for lysis check/venogram
- eventual definitive surgery for thoracic outlet syndrome, locally or at home [facility]
Code: Full
Total Critical Care Time 41 minutes. I was immediately available to the patient and staff. I personally examined, reviewed labs, diagnostic images/reports, interpretations, treatment plans, discussed patient care with other providers and family
or caregivers (if patient is unable to make decisions), entered orders as appropriate and documented the medical record.
Anticipated Discharge: > 48 hours
Subjective/Interval History
-
Date of Service: October 03, 2024
resting comfortably
thrombolysis and IV heparin running
Objective Data
-
Labs:
Laboratory Results
10/03/24 10/03/24
03:51 11:52
WBC 6.7 7.4
Hgb 13.8 14.3
Hct 37.5 L 39.5
Plt Count 145 152
PT 15.2 H Pending
INR 1.17 Pending
APTT 35.0 Pending
Sodium 139
Potassium 4.3
Chloride 108 H
Carbon Dioxide 27
BUN 11
Creatinine 0.9
Glucose 81
Calcium 9.3
Vital Signs:
Vital Signs
Temp Pulse Resp BP Pulse Ox
97.5 F 44 10 117/62 99
10/03/24 12:00 10/03/24 09:00 10/03/24 09:00 10/03/24 09:00 10/03/24 09:00
I&O
10/02/24 10/03/24 10/04/24
06:59 06:59 06:59
Intake Total 2039 / 2174 405 / 405
Output Total 500 / 500 700 / 700
Balance 1540 / 1675 -295 / -295
Physical Exam
-
General: No Apparent Distress
HEENT: Normocephalic and Atraumatic
Respiratory: Negative Wheezes
Cardiac: Regular Rhythm and S1/S2
GI: Soft
Genito-urinary: No Costovertebral Tender
Neuro: AO x 3
Psych: Calm
Data Reviewed
-
Critical Care Time (in minutes): 41
Labs: Labs Reviewed by me
[2024-10-03] MEDS: NSS 1000 INF CATH (13:05)
--- NOTE | 2024-10-03 14:38 | CM ---
Plan for ORIF this afternoon to eval post thrombolysis and plan to remove catheter. Patient insurance info as follows: [employer] in the name of Brendan Galeano (father) policy # [id number],Group [id number], Phone # . Cost of Eliquis
5 mg BID is $116.32/month. Will need coupon at discharge. Attending aware. Discharge POC: TBD. Most likely home with no needs.
--- NOTE | 2024-10-03 14:49 | CM ---
Plan for OR this afternoon to eval post thrombolysis and plan to remove catheter. Patient insurance info as follows: [employer] in the name of Brendan Galeano (father) policy # [id number],Group [id number], Phone # . Cost of Eliquis 5
mg BID is $116.32/month. Will need coupon at discharge. Attending aware. Discharge POC: TBD. Most likely home with no needs.
--- NOTE | 2024-10-03 15:45 | W.SUR.PREOP ---
Pre-Operative Surgical Note
-
I have examined this patient prior to the performance of the scheduled procedure.
The patient's condition is unchanged from the time of the current History and
Physical and the patient is able to undergo the scheduled procedure.
[2024-10-03] MEDS: CATHFLO/ACTIVASE INF CATH ×2 (17:00)
--- NOTE | 2024-10-03 17:38 | W.SUR.POST ---
Surgical Immediate Post Op
Note
Pre Op Diagnosis: Thoracic Outlet Syndrome
Post Op Diagnosis: Thoracic Outlet Syndrome
Procedure Performed: Lysis catheter removal, balloon angioplasty
Primary Surgeon: Abdiel Wheeler III, MD
Secondary Surgeons: Elgin Rehman MD
Anesthesia: see anesthesia record
Estimated Blood Loss: 1 cc
Fluids: see anesthesia record
Drains/Shunts: None
Specimens/Cultures: None
Doppler/Duplex/Angio (Y/N): None
Complications: none
Operative Findings: near complete resolution of subclavian vein clot burden, with significant improvement of flow. Balloon dilatino of stenotic segment at the medial border of first rib.
[2024-10-03] MEDS: HEPARIN 25000 UNITS/250 ML VEN SHEATH (17:54)
--- NOTE | 2024-10-03 18:07 | OR.RPT ---
Operative Report
Operative Report
Date of Operation: 10/03/2024
Pre Op Diagnosis:
1. Occlusive Right Subclavian Vein DVT status post initiation of venous thrombolysis
2. Venous Thoracic Outlet Syndrome
Post Op Diagnosis:
1. Occlusive Right Subclavian Vein DVT status post initiation of venous thrombolysis
2. Venous Thoracic Outlet Syndrome
Procedure:
1. Right upper extremity venogram (lysis check)
2. Central venogram
3. Balloon angioplasty of right subclavian vein stenosis (8 mm x 40 mm angioplasty balloon; 10 mm x 40 mm angioplasty balloon)
3. Termination of thrombolysis
Surgeon: Abdiel Wheeler III, MD
Sap Bi Developer: Elgin Rehman MD PGY-6
Anesthesia: Sedation/local
Complications: None
Estimated Blood Loss: Less than 20 cc
History and Indications for Procedure: 19-year-old male who presented with right upper extremity swelling and venous duplex demonstrating occlusive right subclavian vein DVT. Pharmacologic thrombolysis was initiated 10/02/2024. He was taken back to
the operating room for lysis check.
Procedure in Detail: Kyrie Galeano was correctly identified and placed supine on the operating table with his right arm abducted on an armboard. After adequate induction of anesthesia his right upper extremity including the sheath and lysis catheter
were prepped and draped in the usual sterile fashion. A timeout procedure was performed with the nursing and anesthesia staff confirming the patient's identity as well as the nature and laterality of the procedure.
Right upper extremity venography was performed through the 6 Anguillan sheath after removing the [employer] lysis catheter over a Storq wire. Venogram demonstrated significant improvement with a now patent right axillary vein and subclavian vein.
Significant decrease and venous collaterals flow was identified. Mild residual thrombus remained. High-grade stenosis in the subclavian vein was identified over the medial aspect of the right first rib margin.
Systemic heparin was administered. Under roadmap guidance I brought into position an 8 mm x 40 mm angioplasty balloon. The balloon was positioned in the desired location across the subclavian vein stenosis and inflated to nominal pressure.
Subsequently a 10 mm x 40 mm angioplasty balloon was brought into position across the subclavian vein stenosis under roadmap guidance. The balloon was inflated to nominal pressure and then slowly deflated and removed over the wire
Completion venogram demonstrated a patent right basilic vein, axillary vein and subclavian vein with significantly improved flow compared to pre-treatment. Mild residual nonocclusive thrombus was identified in the right axillary vein. Significant
improvement in the subclavian vein stenosis following balloon angioplasty. The brachiocephalic vein and superior vena cava were patent with no filling defects or stenosis.
Satisfied with this result I then concluded the procedure. The wire was removed from the 6 Anguillan sheath. The sheath was pulled and direct manual pressure was held over the puncture site until hemostasis was achieved. A sterile dressing was
applied. The patient's right upper extremity was gently wrapped with an [place] wrap from the hand to the shoulder.
Patient tolerated the procedure well and was taken to the recovery room in stable condition.
Attestation: I was present and responsible for the entire procedure
Signed:
Abdiel Wheeler III, MD
Vascular Surgery
[facility]
--- NOTE | 2024-10-03 19:34 | PTCARENOTE ---
Received pt from OR with R arm in monica wrap. Pt denies pain. VSS. Pulses as charted. Heparin drip infusing at 1400u/hr. Ptt due at mn. IVF at 80ml/hr. MomKayla at bedside and updated by Dr Wheeler. Bedside report to slot shift manager.
--- NOTE | 2024-10-03 23:57 | PTCARENOTE ---
repeat labs sent. pt OOB to BR with supervision, hygiene completed, tele pack on. R arm with monica wrap, site and neurovascular checks ongoing. heparin and IVF infusing. call fierro in reach. mom at bedside.
[2024-10-04] VITALS (12 sets, daily range): BP systolic 105–127; BP diastolic 44–63; BMI 23.1
[2024-10-04 00:06] LABS: Hematocrit 38.6 % (39.0-52.0); Hemoglobin 14.5 g/dL (13.0-18.0); Mean Corp Hgb Conc. 37.6 g/dL (33.0-37.0); Mean Corpuscular Volume 83.5 fL (80.0-94.0); Platelet Count 164 10^3/uL (130-400); Red Cell Dist. Width 11.7 % (11.5-14.5)
[2024-10-04 00:12] LABS: APTT 93.5 Sec (23.4-35.0)
[2024-10-04] MEDS: HEPARIN 25000 UNITS/250 ML IV (00:59)
--- NOTE | 2024-10-04 05:58 | PTCARENOTE ---
AM labs sent. pt offers no complaints overnight. call fierro in reach. heparin gtt continues. no changes noted to RUE checks.
[2024-10-04 06:14] LABS: Hematocrit 40.1 % (39.0-52.0); Hemoglobin 14.3 g/dL (13.0-18.0); Mean Corp Hgb Conc. 35.7 g/dL (33.0-37.0); Mean Corpuscular Volume 85.7 fL (80.0-94.0); Platelet Count 162 10^3/uL (130-400); Red Cell Dist. Width 11.8 % (11.5-14.5)
[2024-10-04 06:17] LABS: INR 1.19; PT 15.4 Sec (11.4-14.6)
[2024-10-04 06:18] LABS: APTT 63.6 Sec (23.4-35.0)
[2024-10-04] MEDS: HEPARIN 6000 UNITS IV (06:31)
[2024-10-04 06:37] LABS: Blood Urea Nitrogen 16 mg/dl (9-20); Calcium 9.3 mg/dl (8.4-10.2); Carbon Dioxide 26 mmol/L (22-30); Chloride 106 mmol/L (98-107); Estimated Creatinine Clearance > 125 ml/min; Glucose 92 mg/dl (70-99); Potassium 4.2 mmol/L (3.5-5.1); Sodium 137 mmol/L (135-145); eGFR > 60.00
--- NOTE | 2024-10-04 08:09 | W.PN.VS ---
Addendum entered and electronically signed by Germán Krishnamurthy MD 10/04/24 15:32:
Seen and examined earlier this a.m. with DEEPIKA Chinchilla. This is a late entry. Agree with findings as noted above. Seen with the patient's mother at the bedside. Findings as noted below. Patient was without significant complaints. Right arm soft. No
phlegmasia. Plan/as discussed and noted below. I discussed extensively with the patient's mother plan going forward. I answered questions to her satisfaction. Discussed minimizing activities in terms of stressing the thoracic outlet.
Continue/compliance with anticoagulation is stressed.
Original Note:
Today's Communication / Plan
-
Plan reviewed with attending Dr. Abdiel Wheeler III.
Assessment/Plan
-
Patient is a 19-year-old male with no significant past medical history who presented with acute DVT of right upper extremity concerning for thoracic outlet syndrome now s/p thrombolysis and balloon angioplasty to right subclavian vein
Plan:
-Will transition to p.o. anticoagulation, upon initiation of OAC will discontinue heparin infusion
-Continue as needed pain management
-Patient to ambulate as tolerated
- Patient and family are from [place] and were only visiting this area, thus out of best interest for recovery we have recommended that they proceed with first rib resection surgery required for thoracic outlet syndrome where they are primarily
located. Vascular attending Dr. Abdiel Wheeler has spoken with Dr. Nato Palomino/Dr. Matt Jaquez vascular surgeons out of [facility] who have agreed to help us expedite surgery for this patient when they arrive back in [place].
- If he progresses well this morning will likely be discharged this afternoon, given circumstance of patient and family with no local family/resources/residence we are giving exception for patient to be cleared for air travel so that he may return
home and undergo expedited surgery.
- We have assisted in obtaining records and radiology disc for patient/mother in order to bring back to [place] for vascular surgeon that is local to them.
Subjective Data
-
Date of Service: October 04, 2024
Patient seen and examined at bedside, offers no complaints. Denies vomiting, fever, and chills. Tolerating p.o. diet. Denies pain.
Objective Data
-
Vital Signs
Temp Pulse Resp BP Pulse Ox
98.4 F 59 17 111/55 97
10/04/24 03:12 10/04/24 06:00 10/03/24 22:00 10/04/24 06:00 10/04/24 06:00
Intake and Output
10/03/24 10/04/24 10/05/24
06:59 06:59 06:59
Intake Total 2040 / 2175 3157 / 3157
Output Total 500 / 500 2625 / 2625
Balance 1540 / 1675 532 / 532
Intake:
Oral fluids 500 / 500 960 / 960
IV fluids (Total) 1540 / 1675 2197 / 2197
Alteplase 48 / 52 36 / 36
HEPARIN 98102 UNITS/250 ML 25, 60 / 65 45 / 45
000 units In 250 ml @ 500 UNITS
/HR 5 mls/hr DION SHEATH .Q24H
KATERYNA Rx#:[id number]
Heparin 182 / 182
Nss 1,000 ml @ 46 mls/hr INF 552 / 598 414 / 414
CATH .[id number] KATERYNA Rx#:[id number]
Nss 1,000 ml @ 80 mls/hr IV . 880 / 960 1520 / 1520
[id number] KATERYNA Rx#:[id number]
Output:
Urine, Voided 2624 / 2625
Straight cath output 500 / 500
Other:
Number of approximated LARGE 1
amounts of urine
Lab Results
10/04/24 10:45
10/04/24 05:56
Calcium 9.3 mg/dl (8.4-10.2) 10/04/24 05:56
Phosphorus 4.8 mg/dl (2.5-4.5) H 10/02/24 19:36
Magnesium 2.1 mg/dl (1.6-2.3) 10/02/24 19:36
Total Bilirubin 1.0 mg/dl (0.2-1.3) 10/02/24 19:36
AST 44 U/L (17-59) 10/02/24 19:36
ALT 24 U/L (0-50) 10/02/24 19:36
Alkaline Phosphatase 61 U/L (38-126) 10/02/24 19:36
Total Protein 6.6 g/dl (6.3-8.2) 10/02/24 19:36
Albumin 4.2 g/dl (3.5-5.0) 10/02/24 19:36
Physical Exam
-
General: Well-appearing, well-developed, lying in bed
Cardio pulm: Nonlabored breathing
MSK/vascular: RUE wrapped in [place] bandaging; bandages removed at bedside; RUE without discoloration, without swelling, without tenderness to palpation; incision site bandaged, without significant drainage or erythema, clean, motor and neuro sensation
intact
[2024-10-04] MEDS: ELIQUIS 10 MG PO (08:44)
--- NOTE | 2024-10-04 11:00 | W.[place]-PDMP ---
[place]-PD[place]
-
Checked the [place]- Prescription Drug Monitoring Program website, no red flags identified; safe to proceed with prescription.
--- NOTE | 2024-10-04 11:38 | W.PN.INTV ---
Today's Communication / Plan
Recommendations
- Patient transition to oral Eliquis
- Stable for transfer out of ICU
- Lap Checker service will sign off, please call as needed
Assessment
-
Patient is a 19-year-old male who presented with right subclavian thrombosis, noted to have thoracic outlet syndrome, s/p right upper extremity subclavian lysis catheter placement by vascular surgery service, POD #2
Operative findings: Extensive right subclavian clot burden with stenosis at level of first rib medial border
Continue observation following procedure
Follow neurovascular checks per protocol
Currently transition to Eliquis, off heparin and alteplase now
Follow BP monitoring and parameters as set by primary team
No prior cardiac history
Monitor on telemetry
Pain control per protocol
RASS goal 0
No prior history of pulmonary disease
CXR reviewed indicating no acute disease
Diet advancement per protocol
Aspiration precautions
GI prophylaxis: Not indicated
Creat at baseline, follow UO
Critical I/Os
Replete electrolytes as needed
No signs/symptoms suspicious for infectious etiology at this time
Will observe off antibiotics for now
Follow temperatures/CBC
Hb and platelets postoperatively stable
#1. Acute Right Subclavian DVT, likely related to mechanical reason. S/p catheter directed thrombolysis as well as balloon angioplasty. Arm looks significantly improved today, no cyanotic changes, no significant edema or discoloration. Out
patient follow up with Hematology service for further evaluation and duration of anticoagulation recommendations. Currently transition to Eliquis. We went over things to avoid and watch for while patient is on anticoagulation. Particularly
discussed the increased risk of bleeding in contact sport, high risk activities which involve risk of injury. We also went over other signs to watch including melena, hematochezia, hematuria, hemoptysis or hematemesis. We also went over dizziness
which could be a sign of low blood pressure or anemia which will need medical attention.
#2. Right Thoracic outlet syndrome with stenosis at medial first rib, eventually will need surgery for definitive treatment. Vascular surgery service already in contact with patient's local surgery group further management as outpatient per
vascular surgery service.
Discussed with patient's mother at bedside
Critical Care time [31] mins -- The patient is admitted for acute critical illness for the treatment of vital organ failure and/or prevention of further life-threatening conditions. Total care includes time spent in review of history, physical exam,
medications, hemodynamic/ventilator parameters, laboratory data, imaging and discussion with house staff, pharmacy, respiratory therapy, consumer safety inspector, and nursing.
Data:
Vascular US 09/2024: Occlusive thrombus within the right subclavian vein which likely extends into the proximal axillary vein
CXR 09/2024: Right upper extremity catheter with tip projecting over the region of the confluence of the brachiocephalic veins.
Subjective Dataa
Subjective Data
Date of Service:
Date of Service: October 04, 2024
Subjective:
Patient comfortably lying in bed in no acute distress.
Review of Systems
Genitourinary: Other (All 14 systems reviewed and negative except as stated above in the history of present illness.)
Objective Data
Data Reviewed
Vital Signs / I&O / Oxygen:
Vital Signs
Temp Pulse Resp BP Pulse Ox
98.4 F 60 17 120/59 97
10/04/24 11:24 10/04/24 11:01 10/03/24 22:00 10/04/24 11:02 10/04/24 09:00
Intake and Output
10/03/24 10/04/24 10/05/24
06:59 06:59 06:59
Intake Total 2040 / 2175 3157 / 3174
Output Total 500 / 500 2625 / 2625
Balance 1540 / 1675 532 / 549 / 34
SaO2 97
Physical Exam
General: Comfortable
HEENT: Normocephalic
Cardiovascular: S1-S2
Respiratory: Clear and Non-Labored Respirations
GI: Soft and Non Distended
Neurology: Awake and Alert
Skin: Warm
Labs/Micro/Reports
Lab Data
10/04/24 10:45
10/04/24 05:56
Laboratory Results
10/03/24 10/03/24 10/03/24
11:52 16:45 17:24
PT 14.9 H Cancelled
INR 1.14 Cancelled
APTT 34.8 Cancelled Cancelled
10/03/24 10/03/24 10/04/24
22:45 23:49 05:56
PT Cancelled 15.4 H
INR Cancelled 1.19
APTT Cancelled 93.5 H 63.6 H
--- NOTE | 2024-10-04 12:18 | W.PN.HOSP.TC ---
Today's Communication/Plan
-
dc home
Assessment / Plan
Assessment / Plan
Assessment:
acute right subclavian DVT, underlying thoracic outlet syndrome from medial first rib
- s/p right upper extremity subclavian lysis catheter placement 10/02. operative findings include Extensive right subclavian clot burden with stenosis at level of first rib medial border
- s/p balloon angioplasty 10/03
- DC on Eliquis
- f/u with Vascular surgery in [place] for definitive surgery of thoracic outlet syndrome. Cleared for air travel by Vascular.
Code: Full
More than 30 minutes spent in discharge including
Final examination of the patient
Summarizing hospital stay
Instructions for continuing care to all relevant caregivers
Preparation of discharge records, prescriptions, and referral forms
Total time spent (in minutes): 41
Anticipated Discharge: Today
Subjective/Interval History
-
Date of Service: October 04, 2024
doing well no complaints
transitioned to Eliquis
Objective Data
-
Labs:
Laboratory Results
10/04/24 10/04/24 10/04/24
05:56 10:45 12:00
WBC 5.8 Cancelled
Hgb 14.3 Cancelled
Hct 40.1 Cancelled
Plt Count 162 Cancelled
PT 15.4 H
INR 1.19
APTT 63.6 H Pending
Sodium 137
Potassium 4.2
Chloride 106
Carbon Dioxide 26
BUN 16
Creatinine 0.8
Glucose 92
Calcium 9.3
Vital Signs:
Vital Signs
Temp Pulse Resp BP Pulse Ox
98.4 F 60 17 120/59 97
10/04/24 11:24 10/04/24 11:01 10/03/24 22:00 10/04/24 11:02 10/04/24 09:00
I&O
10/03/24 10/04/24 10/05/24
06:59 06:59 06:59
Intake Total 2039 / 2174 3157 / 3174
Output Total 500 / 500 2625 / 2625
Balance 1540 / 1675 532 / 549
Physical Exam
-
General: No Apparent Distress
HEENT: Normocephalic and Atraumatic
Respiratory: Negative Wheezes
Cardiac: Regular Rhythm and S1/S2
GI: Soft and Nontender
Neuro: AO x 3
Psych: Calm
Data Reviewed
-
Total Time Spent with Patient (in minutes): 41
Labs: Labs Reviewed by me
--- NOTE | 2024-10-04 12:20 | W.DS.TRANS ---
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
-
Discharge Instructions:
Discharge Diagnosis/Procedures Occlusive Right Subclavian Vein DVT status post
initiation of venous thrombolysis
Venous Thoracic Outlet Syndrome
Procedure:
10/02/2024- Right upper extremity venogram,
central venogram, placement of thrombolysis
catheter and initiation of pharmacologic venous
thrombolysis (5 Fr, 30 cm Zaire Whitley),
ultrasound-guided percutaneous access to the
right basilic vein
10/03/2024- Right upper extremity venogram (lysis
check), central venogram, balloon angioplasty
of right subclavian vein stenosis (8 mm x 40 mm
angioplasty balloon; 10 mm x 40 mm angioplasty
balloon), termination of thrombolysis
Diet As tolerated
Activity No strenuous activity
Additional Activity Do not lift greater than 10 pounds for 2 weeks
Driving Restrictions No driving for 48 hours
Bathing Restrictions OK to Shower
Instructions:
Stand-Alone Forms: Vascular Surg Discharge Instr
Changes to Home Medications: No
Discharge Medications:
DC Medications w/original date entered in [facility]
apixaban 5 mg tablet (Eliquis) 10 mg (2 x 5 mg) PO BID #13 tabs 10/04/24
oxycodone 5 mg tablet 5 mg PO Q6HPRN PRN moderate pain #4 tabs 10/04/24
Home Medication Changes
Pending Results: No
Total time spent discharging patient (in min): 41
--- NOTE | 2024-10-04 13:25 | CM ---
Patient has been medically cleared for discharge to parents home with no additional skilled services. Eliquis informational packet and 1 month coupon given to mother. Family will transport home.
--- NOTE | 2024-10-04 13:30 | PTCARENOTE ---
Pt discharge instructions given. He was without questions. Mom was also present and had no questions at time of discharge. Pt left with Mom
== END 2024-10-04 14:58 | disposition home or self-care (01) | DRG 279 ==
LOC: ICU 01:06
PROVIDERS: Family Medicine; Nurse Practitioner; Nurse Practitioner Acute Care; Physician Assistant; ADMITTING PHYSICIAN Hospitalist; ATTENDING PHYSICIAN Internal Medicine; CONSULT PHYSICIAN Internal Medicine; EMERGENCY PHYSICIAN Emergency Medicine; OTHER PHYSICIAN Surgery Vascular Surgery
PROC: [UNRECOGNIZED PROCEDURE] (2024-10-03)
PROC: 3E03317 Introduction of Other Thrombolytic into Peripheral Vein, Percutaneous Approach (ICD-10-PCS; 2024-10-03)
PROC: 05753ZZ Dilation of Right Subclavian Vein, Percutaneous Approach (ICD-10-PCS; 2024-10-03)
PROC: B51M1ZZ Fluoroscopy of Right Upper Extremity Veins using Low Osmolar Contrast (ICD-10-PCS; 2024-10-03)
PROC: B5181ZZ Fluoroscopy of Superior Vena Cava using Low Osmolar Contrast (ICD-10-PCS; 2024-10-03)
DX: I82.B11 Acute embolism and thrombosis of right subclavian vein (principal); I87.1 Compression of vein; G54.0 Brachial plexus disorders; L40.8 Other psoriasis; Z83.3 Family history of diabetes mellitus; Z83.79 Family history of other diseases of the digestive system
CPT/HCPCS: 36012; 37212; 37214; 37248; 71045; 75820; 80048; 80053; 83036; 83735; 84100; 84443; 85014; 85018; 85025; 85027; 85384; 85610; 85730; 93005; 93971; 96374; 96376; 99285; C1725; C1751; C1769; C1894; J2997; Q9967